=== PATIENT | male | born 1970 | race Caucasian/White ===

== ENCOUNTER 2016-11-19 12:37 | Emergency (ER) | payer OTHER, MEDICARE ==
[2016-11-19 12:44] VITALS: TEMP 99; BMI 35.0
[2016-11-19] MEDS ORDERED: SODIUM CHLORIDE 0.9% 3 ML FLUSH FLUSH PRN (12:54)
[2016-11-19] MEDS ORDERED: NS 1,000 ML IV ONE ×2 (13:03→14:52)
[2016-11-19] MEDS ORDERED: MORPHINE 4 MG/ML INJECTION IV ONE (13:03)
[2016-11-19] MEDS ORDERED: ONDANSETRON HCL 4 MG/2 ML VIAL IV ONE ×2 (13:03→15:05)
[2016-11-19 13:05] LABS: AUTOMATED BASOPHIL 0.7 % (0-2); AUTOMATED EOSINOPHIL 1.9 % (0-5); AUTOMATED LYMPH 20.2 % (17-44); AUTOMATED MONOCYTE 6.2 % (3-10); MPV 8.2 fL (7.4-10.4)
--- NOTE | 2016-11-19 13:11 | EDPRACDOC ---
- General Information Chief Complaint: Nausea,Vomiting,Diarrhea Stated Complaint: VOMITING/DIARRHEA X 1 WEEK/DIZZINESS Time Seen by Provider: 11/19/16 12:50 Information Source: Patient Mode Of Arrival: Car Home Medications: Home Medications Amlodipine Besylate [Norvasc] 5 mg PO DAILY 05/23/16 Aspirin 81 mg PO DAILY 05/23/16 Desvenlafaxine Succinate [Pristiq] 50 mg PO BID 05/23/16 Diazepam [Valium] 5 tab PO Q8H PRN 05/23/16 Fentanyl [Fentanyl 75 mcg/hr patch] 1 patch TOP Q72H 05/23/16 Fish,Saf,Flx,Brg Oils/O3,6,9#2 [Uetw-Qetn-Qbsnyx Oil Softgel] 1 cap PO BID 05/23 Fluticasone Propionate [Flonase] 1 spray TIFFANIE Q8H PRN 05/23/16 Gabapentin 800 mg PO QID PRN 05/23/16 Gemfibrozil [Lopid] 600 mg PO BID 05/23/16 Hydromorphone HCl [Dilaudid] 4 mg PO Q4-6H PRN 05/23/16 Lisinopril/Hydrochlorothiazide [Lisinopril-Hctz 20-12.5 mg Tab] 1 tab PO DAILY 05/23/16 Methocarbamol [Robaxin-750] 750 tab PO Q6H PRN 05/23/16 Methyl-B12/l-Mefolate/B6 Phos [Metanx Tablet] 1 tab PO BID 05/23/16 Montelukast Sodium [Singulair] 1 tab PO DAILY PRN 05/23/16 Niacin [Niacin ER] 1 tab PO DAILY 05/23/16 Ranitidine [Zantac] 1 tab PO BID 05/23/16 Trazodone HCl 200 mg PO HS 05/23/16 Albuterol/Ipratropium Neb [Duoneb] 3 ml NEB Q2H PRN #30 nebu 05/27/16 Nebulizer [Needs Home Nebulizer] 1 item NEB DIR #1 item 05/27/16 PEG-Electrolytes (Miralax) [Miralax] 17 gm PO 1200 PRN #30 pack 05/27/16 Cholecalciferol (Vitamin D3) [Vitamin D3] 10,000 unit PO DAILY 11/19/16 Ondansetron HCl [Zofran] 4 mg PO Q8H PRN #15 tab 11/19/16 Promethazine [Phenergan] 25 mg PO Q8H PRN #5 tab 11/19/16 Allergies/Adverse Reactions: Allergies Allergy/AdvReac Type Severity Reaction Status Date / Time codeine Allergy Nausea/Vomi Verified 11/19/16 12:44 ting - History of Present Illness Onset: wednesday HPI: Patient states he has had nausea/vomiting/diarrhea x 5 days, started to feel dizzy yesterday after being unable to hold anything down for 4 days. Dizziness worse with movement and standing. Denies CP, SOB. Low grade fever, generalized upper abdominal pain, also chronic back pain - patient takes Dilaudid and Fentanyl patches but has been unable to hold down his pain medication. Patient denies bloody stool or emesis. Symptoms Occured: Reports: Spontaneous Emesis: Reports: Bilious, Food Particles Pain Quality: Reports: Cramping Pain Severity: Mild Pain Location: Reports: Epigastric Associated Signs and Symptoms: Reports: Fever, Nausea, Vomiting, Diarrhea. Denies: Hematemesis, Melena, Dysuria, Frequency, Urgency Oral Intake: Decreased Urinary Output: Decreased - Treatment Prior to ED Arrival Reported Medications/Treatment CEMENT MASON Treated With Medication CEMENT MASON YES Medications CEMENT MASON (Medication/ zofran Dose/Time) ED Past Medical History - History Reviewed Yes Nurses notes reviewed and agree except as marked - Patient Medical History Cardiac History: Reports: Hypertension, Heart Attack, Hypercholesterolemia, Valvular Heart Disease Respiratory History: Reports: Asthma, Pneumonia GI/ History: Reports: Gastroesophageal Reflux Musculoskeletal History: Reports: Arthritis (spine and both hip bursitis in both hips), Osteoarthritis Psychological History: Reports: Anxiety. Denies: Depression, Substance Use Disorder Additional Past Medical History: BACK PAIN Surgical History: Reports: Appendectomy, Cholecystectomy, Other (SPINAL CORD STIMULATOR, back x 8) - Family Medical History Reports: Respiratory Disorders - Social Medical History Smoking Status: Never smoker Social History: Denies: Substance Use Disorder EDM Review of Systems - Review of Systems ROS Negative Except as Marked: Yes All systems reviewed and were negative except as marked Constitutional: Fever, Fatigue Eyes: No Symptoms Reported Ears: No Symptoms Reported Throat: No Symptoms Reported Nose: No Symptoms Reported Mouth: No Symptoms Reported Respiratory: No Symptoms Reported Cardiovascular: No Symptoms Reported Gastrointestinal: Diarrhea, Nausea, Pain, Vomiting Genitourinary: No Symptoms Reported Neurological: Dizziness Musculoskeletal: No Symptoms Reported - Physical Exam Constitutional: Alert (Awake), No apparent distress Oriented to: Time, Person, Place Last recorded Vital Signs: Last Vital Signs Temp 99 F 11/19/16 12:41 Pulse 81 11/19/16 12:41 Resp 18 11/19/16 12:41 BP 154/90 11/19/16 12:41 Pulse Ox 98 11/19/16 12:41 Oxygen Pulse Oxygen Saturation 98 O2 Device Room Air Oxygen Flow Rate Fraction of Inspired Oxygen ( FIO2) - HEENT Head: Normal ( normocephalic) Eye Exam: Normal (PERRL, EOMI, Sclera white) Nose: No Symptoms Reported (septum midline) Neck: Normal (FROM, trachea at midline) - Respiratory/Cardiovascular Respiratory: Normal - CTA (BBS clear to auscultation without adventitious sounds ) Cardiovascular: Normal (RRR without murmur, gallop or rub) - GI Auscultation: Normal (NABS) Tenderness: Diffuse, Mild - Musculoskeletal Back: Normal (Non-Tender) Extremities: Normal (Normal tone, Pulses 2+ No cyanosis or edema, FROM) - Integumentary Skin: Normal, Warm, Dry Lymphatics: Normal (no adenopathy) - Neurologic Memory Impaired: Normal Motor Function: Normal (Normal tone, Pulses 2+ No cyanosis or edema, FROM) Mood Description: Normal - Re-evaluation Re-evaluation 1 Re-evaluation Time: 15:10 Discussed with patient results, everything WNL, needs to give a urine so we can discharge him. Patient refusing cath, will not give urine, requesting multiple medications. - Results 11/19/16 12:50 11/19/16 12:50 - EKG EKG #1 EKG Time: 13:03 -: Yes EKG interpreted by me Rate: bpm: 73 [place]: Normal Rhythm: NSR Block: None ST: Normal Decision Time to Discharge: 15:59 - Departure Disposition: Home Condition: Stable Final Diagnosis: Nausea and vomiting, Dehydration Instructions: Acute Nausea and Vomiting (ED) Education/Counseling Given To: Patient Education/Counseling Given Regarding: Diagnosis, Treatment, Prognosis, Follow Up Referrals: None,No Provider [Primary Care Provider] - One Week Prescriptions: Ondansetron HCl [Zofran] 4 mg PO Q8H PRN #15 tab PRN Reason: Nausea/Vomiting Promethazine [Phenergan] 25 mg PO Q8H PRN #5 tab PRN Reason: Nausea/Vomiting Additional Instructions: Please followup with your PCP in 1-2days. Return as needed. Drink plenty of fluids at home.
[2016-11-19 13:12] LABS: BLOOD UREA NITROGEN 16 MG/DL (9-20); CALCIUM 9.1 MG/DL (8.4-10.2); CALCULATED OSMOLALITY 269 MOs/Kg (270-290); CHLORIDE 103 mEq/L (98-107); GLUCOSE 128 MG/DL (70-99); SODIUM LEVEL 138 mEq/L (137-146); TOTAL PROTEIN 8.2 G/DL (6.3-8.2)
[2016-11-19] MEDS ORDERED: Pharmacy Review for Metformin - IV Contrast Given SCH (14:00)
--- NOTE | 2016-11-19 14:32 | DIRPT ---
CLINICAL DATA: Upper abdominal pain, nausea, vomiting and diarrhea for the past 5 days. Loss of appetite for the past 4 days. Previous appendectomy and cholecystectomy. EXAM: CT ABDOMEN AND PELVIS WITH CONTRAST TECHNIQUE: Multidetector CT imaging of the abdomen and pelvis was performed using the standard protocol following bolus administration of intravenous contrast. CONTRAST: 100 cc Isovue 370 COMPARISON: Previous examinations, including the abdomen and pelvis CT dated 11/03/2014. FINDINGS: Lower chest: Minimal right basilar dependent atelectasis. Hepatobiliary: Cholecystectomy clips. Unremarkable liver. Pancreas: No mass, inflammatory changes, or other significant abnormality. Spleen: Within normal limits in size and appearance. Adrenals/Urinary Tract: No masses identified. No evidence of hydronephrosis. Stomach/Bowel: No evidence of obstruction, inflammatory process, or abnormal fluid collections. Vascular/Lymphatic: No pathologically enlarged lymph nodes. No evidence of abdominal aortic aneurysm. Reproductive: Mildly enlarged prostate gland and seminal vesicles. Other: Left inguinal hernia containing fat. Musculoskeletal: Lumbar and lower thoracic spine postoperative changes, including fixation hardware. There is also fixation hardware bridging both sacroiliac joints. Neural stimulator lead in the lower thoracic spinal canal. IMPRESSION: No acute abnormality. Electronically Signed By: Nicola Baptiste M.D. On: 11/19/2016 14:29
[2016-11-19] MEDS ORDERED: LORAZEPAM 1 MG TAB PO ONE (14:52)
[2016-11-19] MEDS ORDERED: PROMETHAZINE 25 MG/ML VIAL IV ONE (15:09)
[2016-11-19] MEDS ORDERED: HYDROmorphone 1 MG INJECTION IV ONE (15:58)
[2016-11-19 15:59] LABS: RBC/URINE 0-2 (0-2); WBC/URINE 0-2 (0-2)
[2016-11-19 16:00] LABS: LEUKOCYTES/URINE NEG (NEGATIVE); NITRITE/URINE NEG (NEGATIVE); URINE OCCULT BLOOD NEG (NEG/TRACE)
[2016-11-19 16:26] VITALS: BP 133/67; PULSE 72
[2016-11-19] MEDS ORDERED: SODIUM CHLORIDE 0.9% 3 ML FLUSH FLUSH SCH (18:00)
== END 2016-11-19 16:25 | disposition home or self-care (01) ==
LOC: ED 12:37
DX: R11.2 Nausea with vomiting, unspecified (principal); E86.0 Dehydration; R10.10 Upper abdominal pain, unspecified
CPT/HCPCS: 36415; 74177; 80053; 81001; 83690; 85025; 93005; 96361; 96374; 96375; 99284; A9698; J1170; J2270; J2405; J2550; J3490